=== PATIENT | male | born 1990 | race Two or more races ===

== ENCOUNTER 2019-06-15 14:56 | Emergency (ER) | payer SELFPAY ==
--- NOTE | 2019-06-15 15:36 | XRAY Report ---
Reason: Trauma Procedure Date: 06/15/2019 Accession Number: [id number] / [id number] Procedure: XR - Hand 3 View RT CPT Code: FULL RESULT: EXAM: RIGHT HAND RADIOGRAPHY EXAM DATE: 06/15/2019 03:19 PM. CLINICAL HISTORY: Trauma. COMPARISON: None. TECHNIQUE: 3 views. FINDINGS: Bones: Lucency in the first distal phalanx could represent a nondisplaced fracture.. No focal abnormal osseous lesions. Internal fixation of the fourth and fifth metacarpals with plate and screw hardware for remote fractures is noted with advanced healing of the fractures, and no sign of hardware lucency or break. Joints: Normal. No subluxations. Soft Tissues: Mild soft tissue swelling in the first digit noted. IMPRESSION: 1. Possible nondisplaced fracture of the first distal phalanx. 2. No other acute fracture or dislocation seen in the right hand. 3. Advanced healing of the likely remote fourth and fifth metacarpal fractures without sign of hardware complication. [facility]
--- NOTE | 2019-06-15 16:02 | ED Physician Documentation ---
PD HPI UPPER EXT INJURY - Stated complaint Stated Complaint: R HAND INJ - Chief complaint Chief Complaint: Ext Problem - History obtained from History obtained from: Patient - History of Present Illness Location: Right, Hand Type of injury: Blunt / blow (car door closed firmly on right hand. Has swelling and tenderness; pain with ROM around the 3rd MCP.) Timing - onset: How many days ago (2) Timing - duration: Days (2) Timing - details: Abrupt onset, Still present (swelling decreasing but still hurting with ROM mainly of the middle finger.) Worsened by: Moving, Palpating Associated symptoms: Swelling. No: Weakness, Numbness Similar symptoms before: Other (has had prior 4th/5th MC fractures with ortho repair. Is concerned about new fracture and any disruption of the prior hardware.) Review of Systems Skin: denies: Abrasion (s), Laceration (s) Musculoskeletal: reports: Extremity swelling (dorsum right hand) Neurologic: denies: Focal weakness, Numbness PD PAST MEDICAL HISTORY - Past Medical History Cardiovascular: None Respiratory: None Musculoskeletal: Other (prior right hand fx.) - Present Medications Home Medications: Ambulatory Orders Medication Instructions Recorded Confirmed Ibuprofen 600 mg PO TID PRN #25 tablet 06/15/19 - Allergies Allergies/Adverse Reactions: Allergies Allergy/AdvReac Type Severity Reaction Status Date / Time No Known Drug Allergies Allergy Verified 06/15/19 15:05 PD ED PE NORMAL - Vitals Vital signs reviewed: Yes - General General: Alert and oriented X 3, No acute distress, Well developed/nourished - Derm Derm: Normal color, Warm and dry - Extremities Extremities: Other (right hand with old scar over 4th and 5th MC shafts, without redness nor swelling. There is swelling and tender over mid 3rd MC, without deformity. He can flex and ext the fingers, but does hurt some. ) - Neuro Neuro: Alert and oriented X 3, No motor deficit, No sensory deficit Results - Vitals Vitals: Vital Signs - 24 hr 06/15/19 06/15/19 15:04 16:37 Temperature 36.8 C Heart Rate 98 88 Respiratory 18 18 Rate Blood Pressure 148/91 H 128/104 H O2 Saturation 97 97 Oxygen O2 Source Room air - Rads (name of study) right hand Radiology: Prelim report reviewed (no fractures; prior hardware intact without disruption. ), See rad report PD MEDICAL DECISION MAKING - ED course Complexity details: reviewed results (no fractures), considered differential, d/w patient Departure - Departure Disposition: 01 Home, Self Care Clinical Impression: Contusion of right hand Qualifiers: Encounter type: initial encounter Qualified Code(s): S60.221A - Contusion of right hand, initial encounter Condition: Stable Record reviewed to determine appropriate education?: Yes Instructions: ED Contusion Hand Prescriptions: Ibuprofen 600 mg PO TID PRN #25 tablet PRN Reason: Pain Comments: No fractures seen on your x-ray. Your prior plates and screws from the prior injuries are still in place. I would anticipate your hand improving over the next several days as the swelling and contusion improved. Splint as needed for protection of the area and comfort. Anti-inflammatories such as ibuprofen or naproxen 3 times a day. Add Tylenol if needed. Limited use of that hand for the next 3 days and progress as able. Forms: Activity restrictions Discharge Date/Time: 06/15/19 16:53
[2019-06-15] MEDS ORDERED: IBUPROFEN 600 MG TABLET PO STA (16:18)
[2019-06-15] MEDS ORDERED: ACETAMINOPHEN 325 MG TABLET PO STA (16:18)
[2019-06-15 16:38] VITALS: BP 128/104
== END 2019-06-15 16:53 | disposition home or self-care (01) ==
LOC: ED 14:56
DX: S60.221A Contusion of right hand, initial encounter (principal); V48.4XXA Person boarding or alighting a car injured in noncollision transport accident, initial encounter; Z87.81 Personal history of (healed) traumatic fracture
CPT/HCPCS: 73130; 99283; A9270